=== PATIENT | female | born 1980 | race Caucasian/White ===

== ENCOUNTER 2020-07-23 06:53 | Outpatient (NON) | payer OTHER, SELFPAY ==
[2020-07-24 00:03] LABS: SARS-CoV-2 RNA PCR Negative
== END 2020-07-23 06:54 ==
PROVIDERS: PCP Internal Medicine; Visit Provider Internal Medicine
DX: Z20.828 Contact with and (suspected) exposure to other viral communicable diseases (principal); R68.89 Other general symptoms and signs
CPT/HCPCS: 87635; C9803; U0003

== ENCOUNTER 2020-08-06 09:17 | Outpatient (CLI) | payer OTHER, SELFPAY ==
--- NOTE | ~2020-08-06 | US_ITS ---
EXAMINATION: US abdomen complete EXAM DATE: 08/06/2020 10:24 INDICATION: R10.9 - Unspecified abdominal pain. TECHNIQUE: Multiple grayscale and Doppler images of the complete abdomen were obtained (by a technolo gist who performed the scan) and subsequently reviewed. Comparison is made to prior examination from 10/12/2016. FINDINGS: The abdominal aorta is normal in caliber. Visualized portion IVC is patent. The pancreatic head a nd body are normal in appearance. The pancreatic tail is not visualized. The liver has normal echogenicity and contour. There are no focal liver lesions identified. There is no evidence of intrahepatic biliary duct dilation. Portal venous flow was seen in the hepatopedal , normal direction and has normal Doppler waveform. Common bile duct measures 4 mm, which is normal. The gallbladder wall is normal in thickness, with ex pected amount of distention. No sonographic evidence of pericholecystic fluid. There is no cholelit hiases. Tiny gallbladder polyps unchanged, not clinically significant. Technologist performing exam r eports patient did not demonstrate sonographic Rizvi's sign. Please note that this sign is less rel iable in patients who have received pain medication. Right kidney: There is normal contour and echogenicity. It measures 9.0 x 3.9 x 5.8 centimeters. T here are no focal renal lesions identified. There is no hydronephrosis. Left kidney: There is normal contour and echogenicity. It measures 11.3 x 5.0 x 5.3 centimeters. T here are no focal renal lesions identified. There is no hydronephrosis. The spleen measures 11.7 centimeters and is morphologically normal. IMPRESSION: 1. Unremarkable complete abdominal ultrasound exam. 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
== END 2020-08-06 09:18 | disposition home or self-care (01) ==
PROVIDERS: PCP Internal Medicine; Visit Provider Internal Medicine
DX: R10.9 Unspecified abdominal pain (principal)
CPT/HCPCS: 76700

== ENCOUNTER 2022-01-06 19:30 | Emergency (ER) | payer OTHER, SELFPAY ==
[2022-01-06 19:33] VITALS: BP 148/81; PULSE 66; RESP 12; TEMP 36.5; O2SAT 100
--- NOTE | 2022-01-06 19:35 | ED.EYEPROB ---
HPI - Eye Problem General Chief complaint: Eye Problems Stated complaint: EYE REDNESS Time Seen by Provider: 01/06/22 19:30 Source: patient, RN notes reviewed and old records reviewed Mode of arrival: ambulatory Limitations: no limitations History of Present Illness HPI Narrative: 41-year-old female presents to the [facility] with discomfort to the right eye and redness that she noticed this afternoon. Denies any change in vision. Patient normally wears contacts, took them out and noticed the increased redness. MD chief complaint: eye pain and eye redness Location: right eye Related Data Allergies Allergy/AdvReac Type Severity Reaction Status Date / Time No Known Allergies Allergy Unknown Verified 01/06/22 19:36 Review of Systems Review of Systems: All systems reviewed & are unremarkable except as noted in HPI and below Constitutional: Constitutional: Reports no additional constitutional complaints, Denies chills and Denies fever(s) Eyes: Eyes: Reports as per HPI, Denies blind spots, Denies blurry vision, Denies exophthalmos, Denies change in vision, Denies decreased night vision, Reports eye discharge (Tearing of the eyes), Reports irritation, Denies other visual disturbances, Reports requires corrective lenses and Denies photophobia ENT: Reports system reviewed and no additional complaints, except as documented Cardiovascular: Cardiovascular: Reports no additional cardiovascular complaints and Denies chest pain Respiratory: Respiratory: Reports no additional respiratory complaints and Denies cough Gastrointestinal: Gastrointestinal: Reports no additional gastrointestinal complaints and Denies abdominal pain Musculoskeletal: Musculoskeletal: Reports no additional musculoskeletal complaints Integumentary/Breasts: Skin/Breast: Reports system reviewed and no additional complaints, except as docu Neurologic: Reports system reviewed and no additional complaints, except as documented Psychiatric: Psychiatric: Reports no additional psychiatric complaints Allergic/Immunologic: Allergic/Immunologic: Reports no additional allergic/immunologic complaints PMF Past Medical History Medical History Heart palpitations New daily persistent headache Family History Family History Grandparent Hypertension Family history of malignant neoplasm of breast Family history of heart disease in male family member before age 55 Diabetes mellitus Sibling Family history of spina bifida Mother Family history of pancreatic cancer Other Depression Family history of alcoholism Family history of mental disorder Family history of osteoporosis Social History Social History Smoking status: Never smoker Alcohol intake: current Comments At the time of my signature, I reviewed and agree with the nursing past medical, surgical, social, and family history. There is no relevant family history pertinent to the patient complaint. Exam Const: General: healthy appearing, no acute distress and alert Nutritional Appearance: well nourished Orientation/consciousness: patient oriented x3 Limitations: no limitations HENMT: Head: normal to inspection Ears: external ears normal Eyes: Cornea: corneas abnormal on the right fluorescein used and abrasion curved; no contact lens present and with no foreign body noted and fluorescein used Pupils: Equal, round and reactive pupils present EOM: EOMs intact bilaterally Eyes/upper lids images: 1. Abrasion Neck: Neck: normal visual inspection, no lymphadenopathy and no meningeal signs Chest: Chest palpation & inspection: normal inspection of the chest Resp: Effort & Inspection: normal respiratory effort and no use of accessory muscles Auscultation: clear to auscultation bilaterally, no crackles, no rales, no rhonchi and no wh
== END 2022-01-06 19:53 | disposition home or self-care (01) ==
PROVIDERS: Emergency Provider Nurse Practitioner; PCP Internal Medicine
DX: S05.01XA Injury of conjunctiva and corneal abrasion without foreign body, right eye, initial encounter (principal); X58.XXXA Exposure to other specified factors, initial encounter
CPT/HCPCS: 99213; G0463

== ENCOUNTER 2023-04-28 14:14 | Outpatient (CLI) | payer OTHER, SELFPAY ==
[2023-04-28 15:52] LABS: Appearance Urine Clear (Clear); Bacteria Urine 4+ /hpf; Bilirubin Urine Negative (Negative); Blood Urine Negative (Negative); Color Urine Yellow (Yellow); Glucose Urine UA Negative (Negative); Hyaline Casts Urine Present /lpf; Ketones Urine Negative (Negative); Leukocyte Esterase Ur Trace LEU/UL (NEGATIVE); Nitrate Urine Positive (Negative); Non Pathogenic Casts 0-2; Protein Urine Negative (Negative); Specific Grav Ur 1.012 (1.001-1.035); Squamous Epithelial Cell Urine Occasional /hpf (Few); Urobilinogen Urine 0.2 mg/dL (<2.0)
[2023-04-28 15:54] LABS: Add Urine Microscopic? YES
== END 2023-04-28 14:15 | disposition home or self-care (01) ==
LOC: ANHLAB 14:15
PROVIDERS: PCP Family Medicine; Visit Provider Nurse Practitioner Family
DX: N39.0 Urinary tract infection, site not specified (principal)
CPT/HCPCS: 81001; 87077; 87086; 87186

== ENCOUNTER 2023-09-30 08:04 | Emergency (ER) | payer OTHER, SELFPAY ==
--- NOTE | 2023-09-30 08:07 | ED.FEMALEGU ---
HPI - Female Genitourinary General Chief complaint: Urogenital-Female Stated complaint: Uti symptoms Source: patient, RN notes reviewed and old records reviewed Mode of arrival: ambulatory Limitations: no limitations History of Present Illness HPI Narrative: 42-year-old female presents to the [facility] with concerns for UTI. Patient reports that on September 25 started with some foul-smelling, cloudy urine. States that she started burning the last couple days with urination. Denies any fevers, back pain, abdominal pain. No nausea vomiting. Has taken Tylenol Recently had a UTI, treated with Cipro 04/28. Onset (ago): day(s) (5) Related Data Allergies Allergy/AdvReac Type Severity Reaction Status Date / Time No Known Allergies Allergy Unknown Verified 09/30/23 08:15 Review of Systems Review of Systems: All systems reviewed & are unremarkable except as noted in HPI and below Constitutional: Constitutional: Reports no additional constitutional complaints Eyes: Eyes: Reports no additional eye complaints ENT: Reports system reviewed and no additional complaints, except as documented Cardiovascular: Cardiovascular: Reports no additional cardiovascular complaints, Denies chest pain and Denies dyspnea Respiratory: Respiratory: Reports no additional respiratory complaints, Denies chest congestion, Denies cough and Denies dyspnea Gastrointestinal: Gastrointestinal: Reports no additional gastrointestinal complaints, Denies abdominal pain, Denies nausea and Denies vomiting Genitourinary: Genitourinary: Reports as per HPI Musculoskeletal: Musculoskeletal: Reports no additional musculoskeletal complaints Integumentary/Breasts: Skin/Breast: Reports system reviewed and no additional complaints, except as docu Neurologic: Reports system reviewed and no additional complaints, except as documented Psychiatric: Psychiatric: Reports no additional psychiatric complaints Allergic/Immunologic: Allergic/Immunologic: Reports no additional allergic/immunologic complaints [facility] Past Medical History Medical History Heart palpitations New daily persistent headache Family History Family History Grandparent Hypertension Family history of malignant neoplasm of breast Family history of heart disease in male family member before age 55 Diabetes mellitus Sibling Family history of spina bifida Mother Family history of pancreatic cancer Other Depression Family history of alcoholism Family history of mental disorder Family history of osteoporosis Social History Social History Smoking status: Never smoker Alcohol intake: current Lack of Transportation: No Lack of Food: Never True Current Housing: I Have Housing Concerned About Future Housing: No Difficulty Paying Gas/Electric Bills: No Difficulty Paying for Meds: No Currently Unemployed: No Education: Master's Degree or Higher Difficulty w/ Childcare or Family Care: No Living arrangements: with family Occupation/Education: occupation 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 There is no relevant family history pertinent to the patient complaint. Exam Const: General: cooperative, healthy appearing, comfortable, no acute distress, well developed, alert and well nourished Nutritional Appearance: well nourished Orientation/consciousness: patient oriented x3 Limitations: no limitations HENMT: Head: normal to inspection Ears: hearing grossly normal bilaterally and external ears normal Face/Nose/Sinus: Normal e
[2023-09-30 08:12] VITALS: BP 120/68; PULSE 63; RESP 16; TEMP 36.4; O2SAT 100
== END 2023-09-30 08:40 | disposition home or self-care (01) ==
PROVIDERS: Emergency Provider Nurse Practitioner; PCP Family Medicine
DX: N39.0 Urinary tract infection, site not specified (principal)
CPT/HCPCS: 81003; 87086; 99213; G0463

== ENCOUNTER 2024-01-25 08:03 | Emergency (ER) | payer OTHER, SELFPAY ==
[2024-01-25 08:10] VITALS: BP 112/69; PULSE 62; RESP 16; TEMP 36.6; O2SAT 100
--- NOTE | 2024-01-25 08:11 | ED.FEMALEGU ---
HPI - Female Genitourinary General Chief complaint: Urogenital-Female Stated complaint: UTI SYMPTOMS Source: patient, RN notes reviewed and old records reviewed Mode of arrival: ambulatory Limitations: no limitations History of Present Illness HPI Narrative: 43 year old female presents to [facility] care with complaints of burning after urination with some urgency intermittent frequency since Wednesday. Patient reports that she has taken some Tylenol for discomfort. Patient reports the symptoms increase last night she did experience some chills. Patient reports history of previous urinary tract infections. Patient denies any CVA tenderness or any suprapubic discomfort. MD elicited complaint: dysuria Pertinent past history: other (UTI) Onset (ago): day(s) (4) Location of symptoms: urethra Severity: moderate Vaginal discharge: none Vaginal bleeding: none Urinary symptoms: Dysuria, Urgency and Frequency Treatment prior to arrival: acetaminophen Sexual activity: Yes Related Data Allergies Allergy/AdvReac Type Severity Reaction Status Date / Time No Known Allergies Allergy Unknown Verified 01/25/24 08:12 Review of Systems Review of Systems: CONSTITUTIONAL: Denies fever,positive chills, or sweats. CARDIOVASCULAR: Denies chest pain, palpitations, or edema. RESPIRATORY: Denies cough or dyspnea. GASTROINTESTINAL: Denies abdominal pain, nausea, vomiting, or diarrhea. GENITOURINARY: Reports dysuria, frequency, urgency. Denies flank pain or hematuria. SKIN: Denies rash or itching. MUSCULOSKELETAL: Denies back pain or myalgia. Denies CVA tenderness NEUROLOGIC: Denies headache All systems reviewed & are unremarkable except as noted in HPI and below PMFSH Past Medical History Medical History Heart palpitations New daily persistent headache Family History Family History Grandparent Hypertension Family history of malignant neoplasm of breast Family history of heart disease in male family member before age 55 Diabetes mellitus Sibling Family history of spina bifida Mother Family history of pancreatic cancer Other Depression Family history of alcoholism Family history of mental disorder Family history of osteoporosis Social History Social History Smoking status: Never smoker Alcohol intake: current Lack of Transportation: No Lack of Food: Never True Current Housing: I Have Housing Concerned About Future Housing: No Difficulty Paying Gas/Electric Bills: No Difficulty Paying for Meds: No Currently Unemployed: No Education: Master's Degree or Higher Difficulty w/ Childcare or Family Care: No Living arrangements: with family Occupation/Education: occupation 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 There is no relevant family history pertinent to the presenting complaint Exam Narrative: GENERAL: Well-appearing, well-nourished, and in no acute distress. HEAD: Normocephalic, atraumatic. NECK: Supple.no lymphadenopathy CHEST: Clear to auscultation. No respiratory distress.SAO2 100% on room air HEART: Regular rate and rhythm. No murmur heard. Normal peripheral pulses. ABDOMEN: Soft, nontender, nondistended, normal active bowel sounds. No CVA tenderness, no suprapubic pressure or pain, EXTREMITIES: Normal range of motion. No edema. SKIN: Warm, dry, no rash. NEURO: No focal deficits. Alert and oriented x3. Course Course Emergency Course: Patient is aware of diagnosis, understands and agrees to treatment plan.? Anticipatory guidance given.? Patient agrees to follow-up as direc
== END 2024-01-25 08:32 | disposition home or self-care (01) ==
PROVIDERS: Emergency Provider Registered Nurse; PCP Family Medicine
DX: N39.0 Urinary tract infection, site not specified (principal)
CPT/HCPCS: 81003; 87086; 99213; G0463

== ENCOUNTER 2024-06-07 21:49 | Emergency (ER) | payer OTHER, SELFPAY ==
--- NOTE | ~2024-06-07 | CT_ITS ---
CT scan of the left side CLINICAL HISTORY: Left thigh hematoma versus soft tissue injury TECHNIQUE: Following intravenous administration of 100 cc of Omnipaque 350 contrast material, axial i maging of the left lower extremity was performed from the level of the left pelvis through the left k nee. Sagittal and coronal reformatted images were constructed. Dose reduction technique was used on t his scan by utilizing automated exposure control and iterative reconstruction technique. The dose-donnie gth product (DLP) was 1050.63 mGy-cm. Findings: No fracture or dislocation seen. Joint spaces at the hip and knee are intact. No periosteal reaction. No joint effusion. Visualized musculature is unremarkable. No muscle atrophy evident. No soft tissue mass or fluid colle ction seen. No inflammatory change identified. Vascular structures enhance normally. IMPRESSION: No significant abnormality seen. MR could be considered for further evaluation for subtle soft tissue pathology which may not be detected on CT. Reviewed, dictated and finalized at [facility].
--- NOTE | ~2024-06-07 | XR_ITS ---
AP and lateral views of the left femur Clinical History: Pain Findings: No acute fracture or dislocation is seen. Osseous alignment is anatomic. Visualized joint s paces are grossly preserved. Soft tissues are unremarkable. Impression: Unremarkable left femoral radiographs. Reviewed, dictated and finalized at location M. Impression: Unremarkable left femoral radiographs.
[2024-06-07 21:52] VITALS: BP 120/70; PULSE 74; RESP 15; TEMP 36.6; O2SAT 100
--- NOTE | 2024-06-08 00:32 | ED.LOWEXIN ---
HPI - Extremity Injury (Lower) General Chief Complaint: Extremity Injury, Lower <Obdulia Santo PA-C - Last Filed: 06/08/24 02:55> Stated Complaint: ripping sensation in l upper thigh after bending <Obdulia Santo PA-C - Last Filed: 06/08/24 02:55> Time Seen by Provider: 06/08/24 00:13 <Obdulia Santo PA-C - Last Filed: 06/08/24 02:55> History of Present Illness HPI Narrative: 43-year-old female with no past medical history presents to the emergency department for left thigh pain. 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 She did not hit her head or lose consciousness. She is not having any other pain. She states she has had difficulty moving her left leg since. She is reporting some swelling that she noticed to the left lateral mid thigh which is where her pain mostly is. Patient was transported to the ED in the EMS and received morphine EN route. <Obdulia Santo PA-C - Last Filed: 06/08/24 02:55> Related Data Allergies/Adverse Reactions: Allergies Allergy/AdvReac Type Severity Reaction Status Date / Time No Known Allergies Allergy Unknown Verified 06/07/24 21:50 <Obdulia Santo PA-C - Last Filed: 06/08/24 02:55> Review of Systems Review of Systems: All systems reviewed & are unremarkable except as noted in HPI and below <Obdulia Santo PA-C - Last Filed: 06/08/24 02:55> [facility] Past Medical History Medical History: Medical History Heart palpitations New daily persistent headache <Obdulia Santo PA-C - Last Filed: 06/08/24 02:55> Family History Family History: Family History Grandparent Hypertension Family history of malignant neoplasm of breast Family history of heart disease in male family member before age 55 Diabetes mellitus Sibling Family history of spina bifida Mother Family history of pancreatic cancer Other Depression Family history of alcoholism Family history of mental disorder Family history of osteoporosis <Obdulia Santo PA-C - Last Filed: 06/08/24 02:55> Social History Social History: Social History Smoking status: Never smoker Alcohol intake: current Lack of Transportation: No Lack of Food: Never True Current Housing: I Have Housing Concerned About Future Housing: No Difficulty Paying Gas/Electric Bills: No Difficulty Paying for Meds: No Currently Unemployed: No Education: Master's Degree or Higher Difficulty w/ Childcare or Family Care: No Living arrangements: with family Occupation/Education: occupation 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 HEAD: Normocephalic, atraumatic. ENT: Nares clear, no rhinorrhea or epistaxis. Mucous membranes moist. NECK: Supple. CHEST: Clear to auscultation. No respiratory distress. HEART: Regular rate and rhythm. No murmur heard. Normal peripheral pulses. EXTREMITIES: LLE: Tenderness to the anterolateral aspect of the thigh with mild amount of overlying edema. No ecchymosis. Compartments are soft. No edema to remainder of lower extremity. DP pulse 2 +. Sensation intact. Cap refill less than 2 throughout. Limited passive range of motion of the hip and knee secondary to thigh pain. SKIN: Warm, dry, no rash. NEURO: No focal deficits. Alert and oriented x3 <Obdulia Santo PA-C - Last Filed: 06/08/24 02:55> Course Vital Signs Vital signs: Vital Signs T
[2024-06-08 01:54] LABS: Basophils Percent Auto 0.2 % (0.2-1.2); Eosinophils Percent Auto 0.2 % (0-4.4); Hematocrit 37.3 % (37.0-47.0); Hemoglobin 12.7 g/dL (12.0-15.0); Immature Granulocyte Absolute 0.03 K/mm3 (0.00-0.031); Immature Granulocyte Percent A 0.2 % (0-0.5); Lymphocytes Absolute Auto 1.56 K/mm3 (0.9-3.2); Lymphocytes Percent Auto 12.6 % (18.3-44.2); Mean Corpuscular Hemoglobin 30.8 pg (26-34); Mean Corpuscular Volume 90.3 fl (80-100); Mean Platelet Volume 10.3 fl (7.4-10.4); Monocytes Absolute Auto 0.6 K/mm3 (0.1-0.6); Monocytes Percent Auto 4.8 % (2.6-8.5); Neutrophils Absolute Auto 10.1 K/mm3 (1.3-6.7); Platelet Count Result 217 k/mm3 (150-375); Red Blood Count 4.13 M/mm3 (4.2-5.4); Red Cell Distribution Width 12.6 % (11.5-14.5); White Blood Count 12.3 K/mm3 (4.5-10.0)
[2024-06-08 02:04] LABS: Anion Gap 7 mmol/L (4-12); Blood Urea Nitrogen 14 mg/dL (7-17); Calcium 9.2 mg/dL (8.4-10.2); Carbon Dioxide 27 mmol/L (22-30); Chloride 104 mmol/L (98-107); Estimated CRCL calculation 82 ml/min; Estimated Glomerular Filt Rate > 60; Glucose 103 mg/dL (65-110); Potassium 4.2 mmol/L (3.4-5.0); Sodium 138 mmol/L (137-145)
[2024-06-08 06:15] VITALS: BP 126/78; PULSE 82; RESP 16; O2SAT 100
== END 2024-06-08 06:20 | disposition home or self-care (01) ==
PROVIDERS: Physician Assistant; Emergency Provider Emergency Medicine; PCP Family Medicine
DX: S76.912A Strain of unspecified muscles, fascia and tendons at thigh level, left thigh, initial encounter (principal); W18.39XA Other fall on same level, initial encounter
CPT/HCPCS: 36415; 73552; 73701; 80048; 85025; 99284; Q9967

== ENCOUNTER 2024-08-21 08:04 | Emergency (ER) | payer OTHER, SELFPAY ==
[2024-08-21 08:04] VITALS: BP 119/74; PULSE 71; RESP 16; TEMP 36.6; O2SAT 98
[2024-08-21 08:22] LABS: EDUAAPPEAR Cloudy; EDUABILI Negative (Negative); EDUABLOOD Trace (Negative); EDUACOLOR1 Light/Pale; EDUAGLUCOSE Negative (Negative); EDUAKETONE Negative (Negative); EDUALEUKO 1+ (Negative); EDUANITRATE Negative (Negative); EDUAPROTEIN Negative (Negative); EDUAUROBILI 0.2
--- NOTE | 2024-08-21 08:22 | ED.FEMALEGU ---
HPI - Female Genitourinary General Chief complaint: Urogenital-Female Stated complaint: Uti Symptoms Time Seen by Provider: 08/21/24 08:22 Source: patient Mode of arrival: ambulatory Limitations: no limitations History of Present Illness HPI Narrative: 43-year-old female presents with complaint of dysuria, foul-smelling urine for 3-4 days. Afebrile. Denies chills, nausea. All systems reviewed and negative except as noted above. Related Data Allergies Allergy/AdvReac Type Severity Reaction Status Date / Time No Known Allergies Allergy Unknown Verified 08/21/24 08:19 Review of Systems Review of Systems: CONSTITUTIONAL: Denies fever, chills, or sweats. EYES: Denies visual changes, redness, or discharge. ENT: Denies rhinorrhea, congestion, sore throat, or otalgia. CARDIOVASCULAR: Denies chest pain, palpitations, or edema. RESPIRATORY: Denies cough or dyspnea. GASTROINTESTINAL: Denies abdominal pain, nausea, vomiting, or diarrhea. GENITOURINARY: Reports dysuria, foul-smelling odor. Denies hematuria. SKIN: Denies rash or itching. MUSCULOSKELETAL: Denies back pain, joint pain, or myalgia. NEUROLOGIC: Denies headache, numbness, or weakness. PSYCHIATRIC: Denies anxiety or depression. All other systems reviewed are negative, except as documented in HPI. [facility] Past Medical History Medical History Heart palpitations New daily persistent headache Family History Family History Grandparent Hypertension Family history of malignant neoplasm of breast Family history of heart disease in male family member before age 55 Diabetes mellitus Sibling Family history of spina bifida Mother Family history of pancreatic cancer Other Depression Family history of alcoholism Family history of mental disorder Family history of osteoporosis Social History Social History Smoking status: Never smoker Alcohol intake: current Substance use: never Do You Feel Safe in your Home?: Yes Lack of Transportation: No Lack of Food: Never True Current Housing: I Have Housing Concerned About Future Housing: No Difficulty Paying Gas/Electric Bills: No Difficulty Paying for Meds: No Currently Unemployed: No Education: Master's Degree or Higher Difficulty w/ Childcare or Family Care: No Living arrangements: with family Occupation/Education: occupation 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 There is no relevant family history pertinent to the presenting complaint. Exam Narrative: GENERAL: This is a well-nourished, well-developed patient, in no apparent distress. HEAD: normocephalic, atraumatic. EYES: PERRL. Sclera clear/white. Vision is grossly intact. EARS: External ears normal NOSE: External nose normal NECK: Neck supple, non-tender without lymphadenopathy, masses or thyromegaly. CARDIOVASCULAR: Regular rate and rhythm without murmurs, gallops, or rubs. RESPIRATORY: Clear to auscultation. Breath sounds equal bilaterally. No wheezes, rales, or rhonchi. SKIN: warm, Dry, intact with no suspicious lesions or rash, good texture and turgor. NEURO: awake, alert, and oriented to person, place and time. There were no obvious focal neurologic abnormalities. EXTREMITIES: No joint tenderness, effusion, or edema noted. Course Course Level of Care: Express Care Visit Vital Signs Vital signs: Vital Signs Temperature 36.6 C 08/21/24 08:04 Pulse Rate 71 08/21/24 08:04 Respiratory Rate 16 08/21/24 08:04 Blood Pressure 119/74 08/21/24 08:04 Pulse Oximetry 98 08/21/24 08:04 Oxygen Delivery Room Air 08/21/24 08:04 Temperature 36.6 C 08/21/24 08:04 Pulse Rate 71 08/21/24 08:04 Respiratory Rate 16 08/21/24 08:04 Blood Pressure 119/74 08/21/24 08:04 Pulse Oximetry 98 08/21/24 08:04 Oxygen Delivery Room Air 08/21/24 08:04 Reviewed MDM - Female Genitourinary MDM Narrative Medical decision making narrative: Urinalysis positive leukocytes, positive blood. Will treat patient with antibiotic due to urinary symptoms. Patient is well-appearing, nontoxic. Patient is aware of diagnosis, understands and agrees to treatment plan. Anticipatory guidance given. Patient agrees to follow-up as directed and is aware of reasons to seek care at the emergency department. Portions of this record may have been created with voice recognition software Differential Diagnosis Differential diagnosis: Likely urinary tract infection Lab Data Labs: Lab Results 08/21/24 Range/Units 08:15 POC Urine Color Light/pale POC Urine Clarity Cloudy POC Urine pH 6.0 POC Ur Specif Bagley 1.010 POC Urine Protein Negative (Negative) POC Ur Glucose (UA) Negative (Negative) POC Urine Ketones Negative (Negative) POC Urine Blood Trace (Negative) POC Urine Nitrite Negative (Negative) POC Urine Bilirubin Negative (Negative) POC Urine Urobilinogen 0.2 POC U Leukocyte Esteras 1+ (Negative) Discharge Plan Discharge Clinical Impression: Urinary tract infection Patient Disposition: Home, Self-Care Condition: Stable Instructions: Antibiotic Form, Urinary Tract Infection in Women (ED) Additional Instructions: Take antibiotic as prescribed until gone. Take ibuprofen or tylenol every 6 to 8 hours as needed for pain. Drink at least 64 ounces of water a day. See your doctor if symptoms not improving. Patient Language: Belizean Prescriptions: New amoxicillin-pot clavulanate [Augmentin] 500-125 mg tablet 1 tablet PO BID 5 Days Qty: 10 0RF Follow-up/Referrals: Dennis Fonseca MD [Primary Care Provider] - Time of Disposition: 08:27
== END 2024-08-21 08:32 | disposition home or self-care (01) ==
PROVIDERS: Emergency Provider Nurse Practitioner Family; PCP Family Medicine
DX: N39.0 Urinary tract infection, site not specified (principal); B96.20 Unspecified Escherichia coli [E. coli] as the cause of diseases classified elsewhere
CPT/HCPCS: 81003; 87077; 87086; 87186; 99213; G0463

== ENCOUNTER 2025-07-02 16:12 | Emergency (ER) | payer OTHER, SELFPAY ==
[2025-07-02 16:16] VITALS: BP 124/75; PULSE 58; RESP 16; TEMP 36.2; O2SAT 100
[2025-07-02 16:30] LABS: EDUAAPPEAR Cloudy; EDUABILI Negative (Negative); EDUABLOOD 1+ (Negative); EDUACOLOR1 Yellow; EDUAGLUCOSE Negative (Negative); EDUAKETONE Negative (Negative); EDUALEUKO 1+ (Negative); EDUANITRATE Positive (Negative); EDUAPH 7.0; EDUAPROTEIN Negative (Negative); EDUASPGRAVITY 1.015; EDUAUROBILI 0.2
--- NOTE | 2025-07-02 16:32 | ED.GENADULT ---
HPI - General Adult General Chief complaint: Urogenital-Female Stated complaint: UTI Source: patient Mode of arrival: ambulatory Limitations: no limitations History of Present Illness HPI narrative: Pt presents for evaluation of urinary symptoms for the past two days. Symptoms include dysuria, urinary frequency and malodorous urine. No fever, chills, nausea, vomiting, abdominal pain, low back pain, vaginal bleeding or discharge. LMP 06/15/2025. She has had urinary tract infections in the past and this feels similar. Related Data Allergies Allergy/AdvReac Type Severity Reaction Status Date / Time No Known Allergies Allergy Unknown Verified 07/02/25 16:13 Review of Systems Review of Systems: CONSTITUTIONAL: Denies fever, chills, or sweats. EYES: Denies visual changes, redness, or discharge. ENT: Denies rhinorrhea, congestion, sore throat, or otalgia. CARDIOVASCULAR: Denies chest pain, palpitations, or edema. RESPIRATORY: Denies cough or dyspnea. GASTROINTESTINAL: Denies abdominal pain, nausea, vomiting, or diarrhea. GENITOURINARY: Reports urinary frequency, dysuria and malodorous urine. Denies vaginal bleeding or discharge. SKIN: Denies rash or itching. MUSCULOSKELETAL: Denies back pain, joint pain, or myalgia. NEUROLOGIC: Denies headache, numbness, dizziness, or weakness. PSYCHIATRIC: Denies anxiety or depression. [facility] Past Medical History Medical History New daily persistent headache Heart palpitations Surgical History Surgical History No pertinent past surgical history Family History Family History Grandparent Hypertension Family history of malignant neoplasm of breast Family history of heart disease in male family member before age 55 Diabetes mellitus Sibling Family history of spina bifida Mother Family history of pancreatic cancer Other Depression Family history of alcoholism Family history of mental disorder Family history of osteoporosis Social History Social History Smoking status: Never smoker Alcohol intake: current Substance use: never Do You Feel Safe in your Home?: Yes Lack of Transportation: No Lack of Food: Never True Current Housing: I Have Housing Concerned About Future Housing: No Difficulty Paying Gas/Electric Bills: No Difficulty Paying for Meds: No Currently Unemployed: No Education: Master's Degree or Higher Difficulty w/ Childcare or Family Care: No Living arrangements: with family Occupation/Education: occupation 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 HEAD: Normocephalic, atraumatic. EYES: PERRLA and EOMI. ENT: Nares clear, no rhinorrhea or epistaxis. Mucous membranes moist. Oropharynx without tonsillar hypertrophy exudate or other lesions. Bilateral TMs pearly mathews nonbulging NECK: Supple. No adenopathy or masses. No carotid bruits or JVD CHEST: Clear to auscultation. No respiratory distress. No wheezes rales or rhonchi HEART: Regular rate and rhythm. No murmur heard. Normal peripheral pulses. ABDOMEN: Soft, nontender, nondistended, normal active bowel sounds. BACK: No CVA tenderness EXTREMITIES: Normal range of motion. No edema. SKIN: Warm, dry, no rash. NEURO: No focal deficits. Alert and oriented x3. PSYCH: Normal mood and affect. Course Course Emergency Course: This is a 44-year-old female who presented for evaluation of urinary symptoms. Urine today nitrate positive. Will send urine culture. Start Macrobid. Increase hydration. She declined Pyridium. Follow up with primary provider. Go to the ER for worsening symptoms. Patient in agreement with plan of care. Level of Care: Express Care Visit Vital Signs Vital signs: Vital Signs Temperature 36.2 C L 07/02/25 16:16 Pulse Rate 58 L 07/02/25 16:16 Respiratory Rate 16 07/02/25 16:16 Blood Pressure 124/75 07/02/25 16:16 Pulse Oximetry 100 07/02/25 16:16 Oxygen Delivery Room Air 07/02/25 16:16 Temperature 36.2 C L 07/02/25 16:16 Pulse Rate 58 L 07/02/25 16:16 Respiratory Rate 16 07/02/25 16:16 Blood Pressure 124/75 07/02/25 16:16 Pulse Oximetry 100 07/02/25 16:16 Oxygen Delivery Room Air 07/02/25 16:16 Medical Decision Making Vital Signs Vital Signs: Vital Signs Temperature 36.2 C L 07/02/25 16:16 Pulse Rate 58 L 07/02/25 16:16 Respiratory Rate 16 07/02/25 16:16 Blood Pressure 124/75 07/02/25 16:16 Pulse Oximetry 100 07/02/25 16:16 Oxygen Delivery Room Air 07/02/25 16:16 Temperature 36.2 C L 07/02/25 16:16 Pulse Rate 58 L 07/02/25 16:16 Respiratory Rate 16 07/02/25 16:16 Blood Pressure 124/75 07/02/25 16:16 Pulse Oximetry 100 07/02/25 16:16 Oxygen Delivery Room Air 07/02/25 16:16 Lab Data Labs: Lab Results 07/02/25 Range/Units 16:21 POC Urine Color Yellow POC Urine Clarity Cloudy POC Urine pH 7.0 POC Ur Specif [place] 1.015 POC Urine Protein Negative (Negative) POC Ur Glucose (UA) Negative (Negative) POC Urine Ketones Negative (Negative) POC Urine Blood 1+ (Negative) POC Urine Nitrite Positive (Negative) POC Urine Bilirubin Negative (Negative) POC Urine Urobilinogen 0.2 POC U Leukocyte Esteras 1+ (Negative) Discharge Plan Discharge Clinical Impression: UTI (urinary tract infection) Patient Disposition: Home Condition: Stable Instructions: Antibiotic Form, Urinary Tract Infection in Women (ED) Patient Language: Citizen Of [place] Prescriptions: New nitrofurantoin monohyd/m-cryst [Macrobid] 100 mg capsule 100 mg PO Q12H 7 Days Qty: 14 0RF Rx Instructions: must administer with a meal/food No Action alprazolam 0.25 mg tablet 0.25 mg PO DAILY PRN (Reason: anxiety) Qty: 30 0RF Follow-up/Referrals: Dennis Fonseca MD [Primary Care Provider, Family Practice] Time of Disposition: 16:29
--- OUTSIDE RECORDS SUMMARY | 2025-07-02 17:13 | XMS_ITS | Clinical Summary ---
Author Organization [facility] [address] Address [address] [place] [phone] Care Team Providers Care Cylinder Machine Operator Name Role Phone Dennis Fonseca MD Primary Care Provider [phone] Allergies No known active allergies Medications methylPREDNISol one (MEDROL DOSEPACK) 4 mg Dosepack Take as directed on package 1 packet Active Additional Information Patient not taking.Reported on 12/30/2022 Active Problems No known active problems Immunizations Immunization Administration Dates Next Due Tdap 02/06/2023 Social History Tobacco Use Types Packs/Day Years Used Date Smoking Tobacco: Never Comments Unknown Sex and Gender Information Value Date Recorded Sex Assigned at Not on file Legal Sex Female 6:18 PM CDT Gender Identity Not on file Sexual Orientation Not on file Obstetrics History Last Filed Vital Signs Vital Sign Reading Time Taken Comments Blood Pressure 105/57 02/09/2024 4:19 PM CDT Pulse 87 02/09/2024 4:19 PM CDT Temperature 36.4 C (97.5 F) 02/09/2024 4:19 PM CDT Respiratory Rate 16 02/09/2024 4:19 PM CDT Oxygen Saturation 99% 02/09/2024 4:19 PM CDT Inhaled Oxygen Concentration - - Weight 84.4 kg (186 lb) 02/09/2024 4:19 PM CDT Height 170.2 cm (5' 7) 02/09/2024 4:19 PM CDT Body Mass Index 29.13 02/09/2024 4:19 PM CDT Plan of Treatment Health Maintenance Due Date Last Done Comments Cervical Cancer Screening 1979 Colon Cancer Screening-Colonoscopy 1979 Depression Screening 1979 Hepatitis C Screening 1979 Varicella Vaccines (1 of 2 - 13+ 2-dose series) 11/12/1992 Hepatitis B Screening 11/12/1997 Regular Well Visit/Exam 18-64 11/12/1997 HPV Vaccines (1 - 3-dose SCDM series) 11/12/2006 Breast Cancer Screening-Mammogram 01/27/2025 01/28/2024, 01/28/2024, 02/10/2023, Additional history exists Covid-19 Vaccine ( - 2024- season) 2025 09/21/2022, 07/25/2021, 11/10/2020 Influenza Vaccine (#1) 2025 , 06/29/2021, 06/22/2020, Additional history exists DTaP/Tdap/Td Vaccine (2 - Td or Tdap) 02/06/2033 02/06/2023 Pneumococcal vaccine <65 Aged Out No longer eligible based on patient's age to complete this topic Insurance [employer] [facility] H[facility]PPO Address: [facility] [address] [place] [address] [employer] [facility] H[facility]/PPO Address: [place] [address] [employer] [facility] H[facility]/PPO Address: [address] [place] [address] Care Teams Cylinder Machine Operator Relationship Specialty Start Date End Date Dennis Fonseca MD PCP - General Family Practice 02/09/24
--- OUTSIDE RECORDS SUMMARY | 2025-07-02 17:13 | XMS_ITS | Clinical Summary ---
Author Organization [facility] Address [address] [place] [address] Phone Care Team Providers Care Animal Killer Name Role Phone Odell Wolfe MD Primary Care Provider [phone] Allergies No known active allergies Medications melatonin 10 mg Tablet Take by mouth. Active medroxyPROGESTER one (Provera) 10 mg tablet Take 1 Tablet (10 mg) by mouth daily. 7 Tablet 07/25/2024 Active ALPRAZolam (XANAX) 0.25 mg tablet Take 0.25 mg by mouth. 01/27/2025 Active Active Problems Problem Noted Date Diagnosed Date Labor, SROM, O+, Gbs- 03/30/2013 Encounters Date Type Department Care Team Description 06/26/2025 External Device Data [facility] ABSTRACTION Provider, Abstract 04/10/2025 External Device Data [facility] ABSTRACTION Provider, Abstract from Last 3 Months Family History Medical History Relation Name Comments Spina bifida Brother 1 Healthy Brother 2 Stroke Father Other Maternal Grandfather 61 Suicide Diabetes Maternal Grandmother 93 Other Maternal Grandmother 93 Brain T umor Cancer Mother Pancreatic cancer at ag e 54 Pancreatic Cancer Mother Pancreatic cancer Healthy Paternal Grandfather 99 Breast Cancer Paternal Grandmother 91 80's Healthy Son 1 Healthy Son 2 Healthy Son 3 Relation Name Status Comments Brother 1 Alive Brother 2 Father Alive Maternal Grandfather 61 Maternal Grandmother 93 Mother Pancreatic cancer Paternal Grandfather 99 Paternal Grandmother 91 Son 1 Alive Son 2 Alive Son 3 Alive Social History Tobacco Use Types Packs/Day Years Used Date Smoking Tobacco: Never Passive Smoke Exposure: Never Smokeless Tobacco: Never Alcohol Use Standard Drinks/Week Comments Yes 4 (1 standard drink = 0.6 oz pur e alcohol) social Comments No Sex and Gender Information Value Date Recorded Sex Assigned at Not on file 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 Gender Identity Not on file Sexual Orientation Not on file Occupation Industry Job Start Date Job End Date Not on file Not on file Not on file Not on file Last Filed Vital Signs Vital Sign Reading Time Taken Comments Blood Pressure 122/60 01/31/2025 1:32 PM CDT Pulse 80 04/01/2013 8:11 AM CDT Temperature 36.6 C (97.8 F) 04/01/2013 8:11 AM CDT Respiratory Rate 16 04/01/2013 8:11 AM CDT Oxygen Saturation 100% 03/30/2013 6:09 AM CDT Inhaled Oxygen Concentration - - Weight 78.9 kg (174 lb) 01/31/2025 1:32 PM CDT Height 174.5 cm (5' 8.7) 01/31/2025 1:32 PM CDT Body Mass Index 25.92 01/31/2025 1:32 PM CDT Plan of Treatment Health Maintenance Due Date Last Done Comments Pre-Diabetes and Diabetes Screening 1979 HEPATITIS B VACCINES (1 of 3 - 19+ 3-dose series) 11/12/1998 HPV VACCINES (1 - 3-dose SCD M series) 11/12/2006 COLORECTAL SCREENING 11/12/2024 Colorectal Cancer Screening 11/12/2024 FIT-DNA Q 3 years 11/12/2024 FIT/FOBT Q 1 year 11/12/2024 Flex Sig/CT Colonography Q 5 years 11/12/2024 INFLUENZA VACCINE (#1) 2025 BREAST CANCER SCREENING 01/31/2026 02/01/20 25, 01/28/2024, 02/10/2023, Additional history exists PAP SMEAR 02/01/2028 01/31/2025, 01/05, 01/20/2023, Additional history exists CERVICAL CANCER SCREENING 01/31/2030 HPV/Cotest (21-29) 01/31/2030 01/31/2025, 0 01/28/2024, 01/20/2023, Additional history exists HPV/Cotest (30-65) 01/31/2030 01/31/2025, 0 01/28/2024, 01/20/2023, Additional history exists DTAP/TDAP/TD VACCINES (2 - T d or Tdap) 02/06/2033 02/06/2023 Procedures Procedure Name Priority Date/Time Associated Diagnosis Comments CERV/VAG CYTO SCREEN PAP RLFX HPV Routine 01/31/2025 2:16 PM CDT Encounter for gynecological examination with abnormal finding MAMMO 3D LEIF SCREEN BILAT W OR WO CAD Routine 01/31/2025 12:37 PM CDT Screening mammogram for breast cancer from Last 3 Months or Most Recently Relevant to Health Maintenance Results * (ABNORMAL) CERV/VAG CYTO SCREEN PAP RLFX HPV (01/31/2025 2:16 PM CDT) CLINICAL INFORMATION [facility] Comment:None given LAST MENSTRUAL PERIOD [facility] Comment:[id number] PREV PAP: [facility] Comment:NONE GIVEN PREV BX: [facility] Comment:NONE GIVEN SOURCE [facility] Comment:ENDOCERVIX ADEQUACY: [facility] Comment: Satisfactory for evaluation. Endocervical/transformation zone component present. GENERAL CATEGORIZATION: (A) [facility] Comment:Cytology Results: Ep ithelial Cell Abnormality PAP INTERP (A) [facility] Comment: Atypical Squamous Cells of Undetermined Significance (ASC-US) COMMENT (PAP TEST) [facility] Comment: This Pap test has been evaluated with computer assisted technology. Suggest clinical correlation and follow-up as clinically appropriate CHIEF ORTHOPTIST: [employer] Dirk Comment: LMT, CT(ASCP) CT screening location: [place] [address] [place] [address] PATHOLOGIST [facility] Comment: Steve Escobar M.D., Board Certified in Anatomic Pathology and Cytopathology. (electronic signature) Pathologist Release Date/Time: 02/08/2025 09:48AM EXPLANATORY NOTE Que [facility] Comment: EXPLANATORY NOTE: The Pap is a screening test for cervical cancer. It is not a diagnostic test and is subject to false negative and false positive results. It is most reliable when a satisfactory sample, regularly obtained, is submitted with relevant clinical findings and history, and when the Pap result is evaluated along with historic and current clinical information. HPV E6/E7 Not Detected Not Detected [facility] Comment: Methodology: Director Decision Support-Mediated Amplification This assay detects E6/E7 viral messenger RNA (mRNA) from 14 high-risk HPV types (16,18,31,33,35,39,45,51,52,56,58,59,66,68). Cervical sources are required for HPV testing. If a vaginal source from a patient who has had a total hysterectomy with removal of cervix was submitted, please contact the testing laboratory for alternative testing options. For additional information, please refer to http://education.[employer]/faq/VSJ612e3 (This link if provided for information/ educational purposes only.) Test Performed at: [address] [address] Wilson JOHNSON Genital SWAB OF ENDOCERVIX / Unknown 01/31/2025 2:16 PM CDT 02/01/2025 4:01 PM CDT Gayle Rosenthal NP PATHOLOGY/CYTOLOGY ORDERABL ES Final Result [facility] [phone] [address] * MAMMO 3D LEIF SCREEN BILAT W OR WO CAD (01/31/2025 12:37 PM CDT) Anatomical Region Laterality Modality Breast Bilateral Mammography 01/31/2025 12:3 8 PM CDT Impressions 01/31/2025 12:50 PM CDT IMPRESSION: Negative. RECOMMENDATIONS: Bilateral annual screening mammogram RIGHT BREAST FINAL ASSESSMENT: BI-RADS CATEGORY 1 - Negative LEFT BREAST FINAL ASSESSMENT: BI-RADS CATEGORY 1 - Negative DICTATION LOCATION: [facility] Narrative 01/31/2025 12:50 PM CDT BILATERAL SCREENING DIGITAL MAMMOGRAMS WITH COMPUTER ASSISTED DIAGNOSIS WITH TOMOGRAPHY DATE: 01/31/2025 12:37 PM HISTORY: Routine screening mammogram. . COMPARISON: 01/28/2024 and 02/10/2023. TECHNIQUE: A bilateral screening mammogram was performed. Low-dose full-field digital breast tomosynthesis examination was performed with 2D and 3D acquisitions. Examination is read in conjunction with computer aided detection. BREAST COMPOSITION: Heterogeneously dense, which limits the sensitivity of mammography. FINDINGS: No new masses, suspicious calcifications or areas of asymmetry or distortion are identified. The images were reviewed using the CAD system. us Melissa Bowden MD MAMMO ORDERABLES Final Res ult from Last 3 Months or Most Recently Relevant to Health Maintenance Insurance [employer] [id number] Advance Directives For more information, please contact: [phone] * Full Code (Latest Code Status on File) Date Activated Date Inactivated Comments 03/30/2013 10:14 AM 04/01/2013 12:43 PM * Full Code Date Activated Date Inactivated Comments 03/30/2013 2:00 AM 03/30/2013 10:14 AM Care Teams Animal Killer Relationship Specialty Start Date End Date Odell Wolfe MD [address] [place] [id number] PCP - General Internal Medicine 02/01/20
--- OUTSIDE RECORDS SUMMARY | 2025-07-02 17:13 | XMS_ITS | Clinical Summary ---
Author Organization [facility] [employer] Address [address] [place] [address] Care Team Providers Care Department Sales Manager Name Role Phone Odell Wolfe MD Primary Care Provider [phone] Source Comments [facility] [employer],non-owned Affiliates and Associated Physician Practices is amultiple site organization consisting of ambulatory clinics and hospital sitesin [place], [place], [place] and [place]. This disclosure is being madepursuant to the Care Everywhere program and may not contain all information available regarding this patient. Last updated 18.[facility] [employer] Allergies No known active allergies Medications * Be aware that medications may not be up to date on this document. Alwaysverify current medications with the patient. DULoxetine (CYMBALTA) 20 MG capsule Take 20 mg by mouth at bedtime Active ALPRAZolam (XANAX) 0.5 MG tablet Take 0.5 mg by mouth as needed for Anxiety Active Melatonin 10 MG Acti ve Active Problems No known active problems Family History Medical History Relation Name Comments Cancer - Other Mother pancreatic Relation Name Status Comments Mother Social History Tobacco Use Types Packs/Day Years Used Date Smoking Tobacco: Never Smokeless Tobacco: Never Alcohol Use Standard Drinks/Week Comments Yes 0 (1 standard drink = 0.6 oz pur e alcohol) socially Comments No Sex and Gender Information Value Date Recorded Sex Assigned at Not on file Legal Sex Female 5:04 AM [employer] [facility] Gender Identity Not on file Sexual Orientation Not on file Last Filed Vital Signs Vital Sign Reading Time Taken Comments Blood Pressure 114/70 06/28/2021 4:42 PM CDT Pulse 67 06/28/2021 4:42 PM CDT Temperature 36.8 C (98.2 F) 06/28/2021 4:42 PM CDT Respiratory Rate 16 06/28/2021 4:42 PM CDT Oxygen Saturation 98% 06/28/2021 4:42 PM CDT Inhaled Oxygen Concentration - - Weight 72.6 kg (160 lb) 05/24/2020 3:47 PM CDT Height 175.3 cm (5' 9) 05/24/2020 3:47 PM CDT Body Mass Index 23.63 05/24/2020 3:47 PM CDT Plan of Treatment Health Maintenance Due Date Last Done Comments COLOGUARD (AGES 45-75) - COL ON CA SCREENING 1979 COLON MONITORING 1979 COLONOSCOPY - COLON CA SCREENING 1979 CT COLONOGRAPHY - COLON CA SCREENING 1979 Colorectal Cancer Screening 1979 FIT - COLON CA SCREENING 1979 FLEX SIG - COLON CA SCREENING 1979 LIPID TESTING 1979 MAMMOGRAM 1979 HIV SCREENING 11/12/1994 HEPATITIS C SCREENING 11/08/1997 DTAP/TDAP/TD VACCINES (1 - Tdap) 11/12/1998 HEPATITIS B VACCINE (1 of 3 - 19+ 3-dose series) 11/12/1998 HPV VACCINE (1 - 3-dose SCDM series) 11/12/2006 DEPRESSION SCREENING 09/06/2024 COVID-19 VACCINE (2 - 2024-2 6 season) 2025 11/10/2020 INFLUENZA VACCINE (#1) 2025 0, 07/15/2018, 06/16/2017 ZOSTER VACCINE (1 of 2) 11/12/2029 HIB VACCINE Aged Out No longer eligi ble based on patient's age to complete this topic MENINGOCOCCAL (Group B) VACCINE SHARED DECISION-MAKING Aged Out No longer eligible based on patient's age to complete this topic MENINGOCOCCAL GROUPS A/C/Y/W VACCINE Aged Out No longer eligible b ased on patient's age to complete this topic PNEUMOCOCCAL VACCINE Aged Out No long er eligible based on patient's age to complete this topic Insurance [facility] Care Teams Department Sales Manager Relationship Specialty Start Date End Date Odell Wolfe MD [address] [place] [address] PCP - General Internal Medicine 11/11/18
--- OUTSIDE RECORDS SUMMARY | 2025-07-02 17:13 | XMS_ITS | Data Portability ---
Author Organization [employer], [facility] Address [address] [place] [address] Assessment Encounter Date Assessment Date Assessment LastModified by Organization Details LastModified Time 03/06/2021 03/06/2021 Suspect an uncomplicated UTI. Will treat with antibiotics, encourage fluids, and pain control (NSAIDS). Patient reports she is not . She also denies any vaginal discharge. Patient verbalizes precautions that would suggest worsening illness and need for in person evaluation [email or web address] Not available 03/06/2021 10:41:53 Plan of Treatment Reminders Order Date Submit Date Provider Last Modified By Organization Details Last Modified Time Details Appointments None recorded. Lab None recorded. Referral None recorded. Procedures None recorded. Surgeries None recorded. Imaging None recorded. Medication Orders Macrobid 100 mg capsule 2020 021 [id number], [address], [place], [phone], 10:43:15 Patient TargetsNo targets recorded. Patient Instructions Encounter Date Encounter Id Patient Instructions Last Modified By Organization Details Last Modified Time 03/06/2021 [id number] Female Urinary Tract Infection (UTI): Care Instructions [email or web address] Not available 03/06/2021 10:43:07 Thank you for using [employer]. Based on your symptoms it is likely you have a urinary tract infection and would benefit from a course of antibiotics. Please take the full course of antibiotics as prescribed. Please also drink plenty of fluids and get rest. Tylenol and Motrin will also help any discomfort. Please call back or seek an in person exam if you develop abdominal or back pain, have fevers, develop vomiting, have difficulty urinating, or if you feel worse in any way. You should start to feel better in 24-48 hours. The antibiotic that I prescribed today treats most bacteria that cause a UTI. There is some resistance to antibiotics these days, therefore, if you are not improving you will need an in person exam and urine culture. I hope that you are feeling better soon. It was a pleasure caring for you today. [email or web address] Not available 03/06/2021 10:41:53 Reason for Referral None Reported. Problems Name Problem SNOMED Code Status Onset Date Resolution Date Notes Provider Name and Address Organization Details Recorded Time Anxiety [id number] Active 021 ELLIOTT Adams [address], [place], [address] , [facility] 03/06/2021 10:40:02 Problem Notes None recorded. Medical Equipment None Reported. Allergies No known drug allergies Medications Name Sig Start Date Stop Date Status Note LastModified by Organization Details LastModified Time Macrobid 100 mg capsule Take 1 capsule every 12 hours by oral route for 7 days. 021 active Not Available Not Available Not Avai lable duloxetine active Not Available Not Av ailable Not Available Vitals None Recorded Social History None recorded. Functional Status None recorded. Mental Status None recorded. Family History Nothing Reported. Medical History No medical history recorded. Gynecological HistoryNo gynecological history recorded. Obstetrics History GPAL:G 0 P 0 0 0 0 Past Encounters Encounter ID Performer Location Encounter Start Date Encounter Closed Date Diagnosis/Indication Diagnosis SNOMED-CT Code Diagnosis ICD10 Code Diagnosis IMO Codes Diagnosis Note [id number] ELLIOTT Adams [id number] [place] [address] [facility] [address] 03/06/2021 10:16:00 03/07/2021 07:07:26 Acute urinary tract infection 056241795 N39.0 Health Concerns Section Related Observation LastModified by Organization Detai ls LastModified Time None Recorded Concern Status LastModified by Organization Details LastModified Time None Recorded Advance Directives Directive None Recorded Payers Insurance Date Sequence Insurance Name Policy Number Policy Tillman Covered Member ID Tillman Member ID Guarantor Name 03/06/2021 1 [employer] Benita Hardin [id number] Benita Hardin 03/06/2021 1 [facility] [id number] Benita Hardin [id number] Benita Hardin Notes Date Note Type Note Provider Name and Address Organization Details Recorded Time 03/06/2021 text/html Virtual Visit - Urgent CareReported by PatientIdentity:For patient identity verified by, patient reportsinsurance eligibility check. For i shared my identity credentials with the patient, patient reportsyes.Location:Fo r [place] For patient location, patient reportsother location:. For provider location, patient reportsi was located at my residence.Virtual Visit Education:For i educated the patient on the nature of a virtual visit, patient reportsyes. For if the patient had not had this virtual visit, what would they have done?, patient reportspatient reports they would have gone to urgent care.Virtual Visit Technology:For the patient was seen through synchronous audio and video technology, patient reportsyes. 40 yo female to clinic for evaluation of urinary frequency urgency and dysuria x 1 week. No fever, chills, N/V/D, abd pain, back pain, hematuria. Shraddha Spencer, [employer] [address], [place], [address], [facility] 03/06/2021 10:47:49 OBGyn Episode No OBEpisode recorded.
--- OUTSIDE RECORDS SUMMARY | 2025-07-02 17:13 | XMS_ITS | Encounter Summary ---
Author Organization [employer] Address [address] [place] [address] Care Team Providers Care Construction Project Administrator Name Role Phone Odell Wolfe MD Primary Care Provider Encounter Details Date Type Department Care Team (Latest Contact Info) Description 02/09/2007 Inpatient Historical HIS OB PREADMIT Dennis Erickson MD NO ADDRESS ON FILE Abnormality in Heart Rate/Rhythm, Delivered (Primary Dx) Social History Tobacco Use Types Packs/Day Years Used Date Smoking Tobacco: Never Assessed Comments Unknown Sex and Gender Information Value Date Recorded Sex Assigned at Not on file Legal Sex Female 3:35 AM [employer] Gender Identity Not on file Sexual Orientation Not on file documented as of this encounter Plan of Treatment Not on file documented as of this encounter Visit Diagnoses Diagnosis Abnormality in heart rate/rhythm, delivered, with or without mention of antepartum condition- Primary documented in this encounter Care Teams Construction Project Administrator Relationship Specialty Start Date End Date Odell Wolfe MD [facility] [employer] [place] [address] PCP - General Internal Medicine 02/01/20 documented as of this encounter
== END 2025-07-02 16:33 | disposition home or self-care (01) ==
PROVIDERS: Emergency Provider Nurse Practitioner; PCP Family Medicine
DX: N39.0 Urinary tract infection, site not specified (principal)
CPT/HCPCS: 81003; 87086; 87186; 99213; G0463